=== PATIENT | female | born 1985 | race Caucasian/White ===

== ENCOUNTER 2017-09-13 10:12 | Emergency (ER) | payer OTHER ==
[~2017-09-13 10:12] MED LIST: BACLOFEN10 M1 PO; DIFLUCAN150 MG PO; IBUPROFEN600 M1 PO; ULTRAM50 M1 PO; VITAMIN D250000 UNIT PO
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
[2017-09-13] MEDS ORDERED: ESCITALOPRAM OX10 MG PO (11:39)
[2017-09-13 12:00] LABS: ABSOLUTE BASOPHIL COUNT 0 /CUMM (0.0-0.2); ABSOLUTE EOSINOPHIL COUNT 0 /CUMM (0.0-0.7); ABSOLUTE GRANULOCYTE CT 2.8 /CUMM (1.4-6.5); ABSOLUTE LYMPH COUNT 1.6 /CUMM (1.2-3.4); ABSOLUTE MONOCYTE COUNT 0.3 /CUMM (0.10-0.60); BASOPHIL % 0.6 % (0.0-2.0); EOSINOPHIL % 0.6 % (0-5); GRANULOCYTE % 58.5 % (42.2-75.2); HEMATOCRIT 39.9 % (37-47); MEAN CORPUSCULAR HGB 28.2 PG (27.0-31.0); MEAN CORPUSCULAR HGB CONC 33.7 G/DL (33.0-37.0); MEAN CORPUSCULAR VOLUME 83.8 FL (81.0-99.0); MEAN PLATELET VOLUME 8.2 FL (7.4-10.4); PLATELET COUNT 312 /CUMM (130-400); RBC DISTRIBUTION WIDTH 14.8 % (11.5-14.5); RED BLOOD CELL CT 4.76 /CUMM (4.20-5.40); WHITE BLOOD CELL COUNT 4.8 /CUMM (4.8-10.8)
--- NOTE | 2017-09-13 13:45 | RADIOLOGY REPORT ---
EXAMINATION: XR RIBS, LEFT XR CHEST CLINICAL INFORMATION: Left anterior rib and chest pain. COMPARISON: Previous chest CT August 2017 and chest x-ray November 2012. TECHNIQUE: 2 views of the left ribs were obtained. 2 views of the chest. FINDINGS: The cardiac and mediastinal contours are normal. The lungs are clear. There is no pleural effusion or pneumothorax. Bony structures are unremarkable. No rib fracture or bone lesion is seen. IMPRESSION: Unremarkable chest and left ribs.
[2017-09-13] MEDS ORDERED: IBUPROFEN800 M1 PO (14:11)
[2017-09-13] MEDS ORDERED: TRAMADOL HCL50 M1 PO (14:11)
[2017-09-13 14:28] VITALS: BP 117/81
== END 2017-09-13 15:08 ==
LOC: ERH 10:12
PROVIDERS: Physician Assistant Medical
DX: R07.89 Other chest pain (principal)
CPT/HCPCS: 71046; 71100-LT; 93005; 93010